=== PATIENT | male | born 1935 | race Caucasian/White ===

== ENCOUNTER 2016-11-09 10:45 | Emergency (ER) | payer MEDICARE, OTHER ==
--- NOTE | 2016-11-09 11:06 | ER Document Report ---
ED GI/ - General Time seen by provider: 11:00 Mode of Arrival: Ambulatory Information source: Patient TRAVEL OUTSIDE OF THE [place] IN LAST 30 DAYS: No - HPI Patient complains to provider of: Abdominal pain, Vomiting. No: Diarrhea Onset: Other - see HPI note Similar symptoms previously: No Recently seen / treated by doctor: No <CHAZ CONNOR - Last Filed: 11/09/16 12:21> <CHAZ SIN - Last Filed: 11/12/16 02:58> - General Chief Complaint: Abdominal Pain Stated Complaint: TORSO PAIN Notes: Patient is a 80-year-old male presented emergency department for abdominal pain , vomiting and nausea. Patient has history of pancreatitis, but has not had an episode for about 5 years. Patient has had this abdominal pain, nausea for the past 2 days and vomited 1 yesterday. Patient states that he has had good bowel movements with no diarrhea. Patient states his pain starts in the middle of his epigastric region andinto his back. Patient describes his pain as sharp and it is exacerbated with certain movements. Patient denies any chest pain, chest pressure, or shortness of breath. Patient states she has a history of type II diabetes mellitus, CHF, hypertension, hyperlipidemia, cholecystectomy, partial colectomy, and a heart valve replacement. (CHAZ CONNOR) - Related Data Allergies/Adverse Reactions: ADRIAN Inhibitors [Adrian Inhibitors] Allergy (Severe, Verified 11/09/16 10:49) Tongue swelling losartan [Losartan] Allergy (Intermediate, Verified 11/09/16 10:49) rash Past Medical History - General Information source: Patient - Social History Smoking Status: Former Smoker Chew tobacco use (# tins/day): No Frequency of alcohol use: None Drug Abuse: None Family History: None Patient has suicidal ideation: No Patient has homicidal ideation: No - Past Medical History Cardiac Medical History: Reports: Hx Atrial Fibrillation, Hx Congestive Heart Failure, Hx Hypercholesterolemia, Hx Hypertension Endocrine Medical History: Reports: Hx Diabetes Mellitus Type 2 GI Medical History: Reports: Hx Gastroesophageal Reflux Disease Musculoskeltal Medical History: Reports Hx Arthritis Past Surgical History: Reports: Hx Abdominal Surgery - colon, Hx Bowel Surgery - colon cancer partial colectomy, Hx Cholecystectomy, Hx Orthopedic Surgery - left shoulder, Hx Tonsillectomy - Immunizations Hx Diphtheria, Pertussis, Tetanus Vaccination: Yes - DECEMBER 2013 Hx Pneumococcal Vaccination: 07/15/09 <NARAAYNCHAZ ADAMS - Last Filed: 11/09/16 12:21> Review of Systems - Review of Systems Constitutional: No symptoms reported EENT: No symptoms reported Cardiovascular: No symptoms reported Respiratory: No symptoms reported Gastrointestinal: See HPI, Abdominal pain, Nausea, Vomiting. denies: Diarrhea Genitourinary: No symptoms reported Male Genitourinary: No symptoms reported Musculoskeletal: No symptoms reported Skin: No symptoms reported Hematologic/Lymphatic: No symptoms reported Neurological/Psychological: No symptoms reported -: Yes All other systems reviewed and negative <CHAZ CONNOR - Last Filed: 11/09/16 12:21> Physical Exam - Vital signs Interpretation: Normal - General General appearance: Appears well, Alert In distress: Mild - HEENT Head: Normocephalic, Atraumatic Eyes: Normal Pupils: PERRL Mucous membranes: Moist - Respiratory Respiratory status: No respiratory distress Chest status: Nontender Breath sounds: Normal Chest palpation: Normal - Cardiovascular Rhythm: Regular Heart sounds: Normal auscultation Murmur: No - Abdominal Inspection: Normal Distension: No distension Bowel sounds: Normal Tenderness: Tender - Mild epigastric tenderness, no guarding, rebound, or rigidity; no pulsatile dullness or hernias. Organomegaly: No organomegaly - Extremities General upper extremity: Normal inspection, Normal ROM, Normal strength General lower extremity: Normal inspection, Normal ROM, Normal strength, Other - good pulses and perfusion. No: Edema - No edema or swelling to the lower extremities - Neurological Neuro grossly intact: Yes Cognition: Normal Orientation: AAOx4 Val[place] Coma Scale Eye Opening: Spontaneous Valente Coma Scale Verbal: Oriented Valente Coma Scale Motor: Obeys Commands [place] Coma Scale Total: 15 Speech: Normal - Psychological Associated symptoms: Normal affect, Normal mood - Skin Skin Temperature: Warm Skin Moisture: Dry <NARAYANANGIECHAZ - Last Filed: 11/09/16 12:21> Course - Laboratory Result Diagrams: 11/09/16 11:22 11/09/16 11:22 <CHAZ CONNOR - Last Filed: 11/09/16 12:21> - Laboratory Result Diagrams: 11/09/16 11:22 11/09/16 11:22 <CHAZ SIN - Last Filed: 11/12/16 02:58> - Re-evaluation Re-evalutation: 11/09/16 11:07 Patient presents a month spell with a 2 day history of mild epigastric abdominal pain and nausea says it feels like when he had pancreatitis. He has a pancreatitis and years has gallbladder removed a couple years ago says he occasionally drinks but very rarely. Hasn't had any problem with this in years. Denies any fevers chills cough chest pain shortness breath vomiting diarrhea or blood in the stool. He has a history of high blood pressure non-insulin- dependent diabetes hyperlipidemia congestive heart failure. He also has history of A. fib had to stop blood thinners due to bleeding 2 months ago. Has a history of colon cancer with partial colectomy in 1999. No recurrence of the cancer as well as a history of GERD. On examination he is well-appearing nontoxic in no acute distress he is afebrile not hypotensive or tachycardic. Mild epigastric tenderness without guarding rebound rigidity pulsatile dullness or hernias good peripheral pulses and no lower show me edema calf tenderness or swelling. Patient does not want IV pain or nausea medication at this point he wants to see with the labs look like and reassess. 11/09/16 13:49 Patient reassessed on examination negative acute white count elevation stable low platelet count mild renal insufficiency unchanged serial examination patient is sleeping on reassessment no acute guarding rebound rigidity he agreed to let me give him a [place] while he was here. He could have early pancreatitis it just isn't showing up yet on laboratory evaluation for this reason I discussed with him and his friend that A here at the bedside since it' s a week any will be able to follow up with his primary care physician to recheck in the emergency department in 12-24 hours for recheck and reevaluation he is to return immediately for increasing worsening or new symptoms. (CHAZ SIN) - Vital Signs Vital signs: Temp Pulse Resp BP Pulse Ox 98.2 F 88 16 120/76 92 11/09/16 13:54 11/09/16 13:54 11/09/16 13:54 11/09/16 13:54 11/09/16 13:54 - Laboratory Laboratory results interpreted by me: 11/09/16 11/09/16 11/09/16 11:22 11:22 11:22 WBC 10.9 H RBC 3.90 L MCV 102 H MCH 35.4 H RDW 15.7 H Plt Count 148 L Seg Neutrophils % 83.8 H Lymphocytes % 8.4 L Absolute Neutrophils 9.1 H Chloride 86 L Carbon Dioxide 41 H* BUN 63 H Creatinine 1.52 H Est GFR ( Amer) 54 L Est GFR (Non-Af Amer) 44 L Glucose 156 H Total Bilirubin 1.6 H NT-Pro-B Natriuret Pep 3440 H Total Protein 8.4 H - EKG Interpretation by Me Additional EKG results interpreted by me: 11/09/16 12:07 EKG interpreted by myself to reveal atrial flutter at [address] segment elevation or depression (CHAZ SIN) Discharge <CHAZ CONNOR - Last Filed: 11/09/16 12:21> <CHAZ SIN - Last Filed: 11/12/16 02:58> - Discharge Clinical Impression: abdominal pain Condition: Stable Disposition: HOME, SELF-CARE Additional Instructions: Abdominal Pain There are many causes of abdominal pain. Pain can mean a serious problem requiring surgery (such as appendicitis). It can also be an innocent problem that goes away on its own (such as a viral infection). Often, time must pass to determine the cause of pain. The physician does not feel that hospitalization is necessary, at present. Things may change within the next 24 hours. Call the doctor or come back for re- examination if any problems occur, such as: (1) Pain that becomes more severe, steady, or becomes concentrated in one specific area. Also, pain that is more severe with movement or coughing. (2) Vomiting that persists or becomes more frequent. (3) Blood in the vomitus, urine, or bowel movements. Blood in the stool may have a tarry or black appearance. (4) Shaking chills or fever greater than 100 degrees F. (5) The abdomen becomes more distended or swollen. (6) Bowel movements cease. (7) Failure to improve as expected. Follow-up in the emergency department for recheck and reevaluation in 12-24 hours since her family doctor will not be open return for increasing worsening or new symptoms Prescriptions: Hydrocodone/Acetaminophen [[place] 5-325 mg Tablet] 1 tab PO BID #6 tablet Referrals: ROSEMARY KNOWLES MD [Primary Care Provider] - Follow up as needed Scribe Attestation: 11/09/16 13:49 I personally performed the services described in the documentation reviewed the documentation recorded by my scribe in my presence and it accurately and completely records my words and actions (CHAZ SIN) Scribe Documentation - Scribe Written by Scribe:: Chaz Connor 11/09/16 12:25 acting as scribe for :: Cy <CHAZ CONNOR - Last Filed: 11/09/16 12:21>
[2016-11-09 11:43] LABS: ABSOLUTE EOSINOPHILS # (AUTO) 0.1 10^3/uL (0.0-0.6); ABSOLUTE LYMPHOCYTES (AUTO) 0.9 10^3/uL (0.5-4.7); ABSOLUTE MONOCYTES (AUTO) 0.7 10^3/uL (0.1-1.4); ABSOLUTE NEUT (AUTO) 9.1 10^3/uL (1.7-8.2); BASOPHILS % (AUTO) 0.4 % (0-2); EOSINOPHILS % (AUTO) 0.8 % (0-6); HEMATOCRIT 39.7 % (37.9-51.0); HEMOGLOBIN 13.8 g/dL (13.5-17.0); HGB HCT DIFFERENCE 1.7; LYMPHOCYTES % (AUTO) 8.4 % (13-45); MEAN CORPUSCULAR HEMOGLOBIN 35.4 pg (27.0-33.4); MEAN CORPUSCULAR HGB CONC 34.7 g/dL (32.0-36.0); MEAN CORPUSCULAR VOLUME 102 fl (80-97); MONOCYTES % (AUTO) 6.6 % (3-13); RED CELL DISTRIBUTION WIDTH 15.7 % (11.5-14.0); SEGMENTED NEUTROPHILS % (AUTO) 83.8 % (42-78); WHITE BLOOD COUNT 10.9 10^3/uL (4.0-10.5)
[2016-11-09 12:03] LABS: ALANINE AMINOTRANSFERASE 29 U/L (21-72); ALBUMIN 4.5 g/dL (3.5-5.0); ALKALINE PHOSPHATASE 80 U/L (38-126); ASPARTATE AMINO TRANSFERASE 46 U/L (17-59); BILIRUBIN,DIRECT 0.4 mg/dL (0.0-0.4); BILIRUBIN,TOTAL 1.6 mg/dL (0.2-1.3); BLOOD UREA NITROGEN 63 mg/dL (7-20); CALCIUM 9.6 mg/dL (8.4-10.2); CHLORIDE 86 mmol/L (98-107); CREATININE RESULT 1.52 mg/dL (0.52-1.25); GLUCOSE 156 mg/dL (75-110); LIPASE 189.2 U/L (23-300); POTASSIUM 3.9 mmol/L (3.6-5.0); TOTAL PROTEIN 8.4 g/dL (6.3-8.2)
[2016-11-09 12:15] LABS: ANION GAP 14 (5-19)
[2016-11-09 12:16] LABS: CARBON DIOXIDE 41 mmol/L (22-30)
[2016-11-09 12:21] LABS: TROPONIN I 0.098 ng/mL
[2016-11-09 12:48] LABS: APPEARANCE,URINE CLEAR; BILIRUBIN,URINE NEGATIVE (NEGATIVE); GLUCOSE, URINE NEGATIVE (NEGATIVE); KETONES,URINE NEGATIVE (NEGATIVE); LEUKOCYTE ESTERASE,URINE NEGATIVE (NEGATIVE); NITRITE,URINE NEGATIVE (NEGATIVE); PROTEIN,URINE NEGATIVE (NEGATIVE); URINE SPECIFIC GRAVITY 1.006; UROBILINOGEN,URINE NEGATIVE mg/dL (<2.0)
[2016-11-09] MEDS ORDERED: HYDROCODONE/ACETAMINOPHEN 5-325 MG TABLET PO ONE (13:47)
[2016-11-09 14:02] VITALS: BP 120/76
--- NOTE | 2016-11-09 19:38 | EKG REPORT ---
SEVERITY:- ABNORMAL ECG - ATRIAL FLUTTER, A-RATE 217 RBBB AND LPFB : Confirmed by: Felicia Guy 09-Nov-2016 19:37:52
== END 2016-11-09 13:50 | disposition home or self-care (01) ==
LOC: ER 10:45
DX: R10.13 Epigastric pain (principal); R11.2 Nausea with vomiting, unspecified; N28.9 Disorder of kidney and ureter, unspecified; I48.92 Unspecified atrial flutter; D69.6 Thrombocytopenia, unspecified; E11.9 Type 2 diabetes mellitus without complications; I10 Essential (primary) hypertension; Z90.49 Acquired absence of other specified parts of digestive tract; Z88.8 Allergy status to other drugs, medicaments and biological substances; Z95.2 Presence of prosthetic heart valve; Z87.891 Personal history of nicotine dependence; Z87.19 Personal history of other diseases of the digestive system
CPT/HCPCS: 93005; 99284; 36415; 83690; 85025; 80053; 81001; 84484; 83880; 71020; 93010; A9270

== ENCOUNTER 2017-04-08 12:51 | Observation (INO) | payer MEDICARE, OTHER ==
[2017-04-08] MEDS ORDERED: ASPIRIN 81 MG TABLET, CHEWABLE PO ONE (13:19)
--- NOTE | 2017-04-08 13:28 | ER Document Report ---
ED General - General Mode of Arrival: Ambulatory Information source: Patient TRAVEL OUTSIDE OF THE [place] IN LAST 30 DAYS: No - HPI Onset: Other - see above <FAUSTO MORGAN - Last Filed: 04/08/17 14:09> <LINO MCCORMICK - Last Filed: 04/08/17 15:55> - General Chief Complaint: Chest Pain Stated Complaint: CHEST PAIN Time Seen by Provider: 04/08/17 13:20 Notes: Patient is an 81 year old male that presents to the emergency department today with complaints of epigastric abdominal pain which radiates to his back. Patient states he has had pancreatitis twice in the past and his pain today feels exactly the same as his previous pancreatitis flares. Patient states he has not consumed EtOH in several years however he does have high cholesterol, diabetes, and a poor diet. Patient states he is short of breath but this is baseline for him. Patient denies any nausea, vomiting, cough or fevers. (FAUSTO MORGAN) - Related Data Allergies/Adverse Reactions: ADRIAN Inhibitors [Adrian Inhibitors] Allergy (Severe, Verified 04/08/17 12:54) Tongue swelling losartan [Losartan] Allergy (Intermediate, Verified 04/08/17 12:54) rash Home Medications: Current Home Medications Albuterol Sulfate [Albuterol Sulfate 2.5mg/3 mL] 1 vial IH [id number] PRN 04/08/17 [ History] Fluticasone Propionate [Flovent Hfa 110 Mcg Inhalation Aerosol 12 gm] 2 puff IN Q12 04/08/17 [History] Past Medical History - General Information source: Patient - Social History Smoking Status: Former Smoker Cigarette use (# per day): No Chew tobacco use (# tins/day): No Frequency of alcohol use: None Drug Abuse: None Lives with: Family Family History: None - Past Medical History Cardiac Medical History: Reports: Hx Atrial Fibrillation, Hx Congestive Heart Failure, Hx Hypercholesterolemia, Hx Hypertension Endocrine Medical History: Reports: Hx Diabetes Mellitus Type 2 GI Medical History: Reports: Hx Gastroesophageal Reflux Disease Musculoskeltal Medical History: Reports Hx Arthritis Past Surgical History: Reports: Hx Abdominal Surgery - colon, Hx Bowel Surgery - colon cancer partial colectomy, Hx Cholecystectomy, Hx Orthopedic Surgery - left shoulder, Hx Tonsillectomy - Immunizations Hx Diphtheria, Pertussis, Tetanus Vaccination: Yes - DECEMBER 2013 Hx Pneumococcal Vaccination: 07/15/09 <CATHYANDRESFAUSTO - Last Filed: 04/08/17 14:09> Review of Systems - Review of Systems Constitutional: denies: Fever EENT: No symptoms reported Cardiovascular: No symptoms reported Respiratory: See HPI, Short of breath - chronic. denies: Cough Gastrointestinal: See HPI, Abdominal pain - upper radiating to back. denies: Nausea, Vomiting Genitourinary: No symptoms reported Male Genitourinary: No symptoms reported Musculoskeletal: No symptoms reported Skin: No symptoms reported Hematologic/Lymphatic: No symptoms reported Neurological/Psychological: No symptoms reported -: Yes All other systems reviewed and negative <FAUSTO MORGAN - Last Filed: 04/08/17 14:09> Physical Exam <FAUSTO MORGAN - Last Filed: 04/08/17 14:09> <LINO MCCORMICK - Last Filed: 04/08/17 15:55> - Vital signs Vitals: Temp Pulse Resp BP Pulse Ox 98.5 F 108 H 32 H 123/74 90 L 04/08/17 12:54 04/08/17 12:54 04/08/17 12:54 04/08/17 12:54 04/08/17 12:54 - Notes Notes: PHYSICAL EXAM GENERAL: Alert, interacts well. No acute distress. HEAD: Normocephalic, atraumatic. EYES: Pupils equal, round, and reactive to light. Extraocular movements intact. ENT: Oral mucosa moist, tongue midline. NECK: Full range of motion. Supple. Trachea midline. LUNGS: Clear to auscultation bilaterally, no wheezes, rales, or rhonchi. No respiratory distress. HEART: Regular rate and rhythm. No murmurs, gallops, or rubs. ABDOMEN: Obese, soft, epigastric abdominal tenderness with palpation, lower abdominal tenderness with palpation. Non-distended. Bowel sounds present in all 4 quadrants. EXTREMITIES: Moves all 4 extremities spontaneously. No cyanosis. NEUROLOGICAL: Alert and oriented x3. Normal speech. PSYCH: Normal affect, normal mood. SKIN: Warm, dry, normal turgor. No rashes or lesions noted. (FAUSTO MORGAN) Course <FAUSTO MORGAN - Last Filed: 04/08/17 14:09> - Laboratory Result Diagrams: 04/08/17 14:05 04/08/17 14:05 <LINO MCCORMICK - Last Filed: 04/08/17 15:55> - Re-evaluation Re-evalutation: 04/08/17 15:31 CBC shows leukocytosis and low platelets at 130, CMP shows slightly elevated BUN at 47, elevated total and direct bilirubin 2.3 and 0.8 respectively, cardiac enzymes indeterminate 0.091, proBNP elevated at 2120, lipase normal at 124.8, suspect this is cardiac in etiology rather than pancreatitis as the lipase is normal and his pain was relieved by nitroglycerin. EKG has some flipped T waves but no acute ischemia. Pain is relieved with nitroglycerin. Discussed case with Dr. Curry from the hospitalist service who agrees to place patient on her service in observation status on the telemetry care unit. Patient is aware that if his cardiac enzymes become positive he may need to be transferred. Patient is agreeable to this plan. Given Lasix for his congestive heart failure. Chest x-ray does not show any major fluid overload. ( LINO MCCORMICK) - Vital Signs Vital signs: Temp Pulse Resp BP Pulse Ox 98.5 F 108 H 18 103/71 97 04/08/17 12:54 04/08/17 12:54 04/08/17 15:01 04/08/17 15:01 04/08/17 15:01 - Laboratory Laboratory results interpreted by me: 04/08/17 04/08/17 04/08/17 14:05 14:05 14:05 WBC 14.6 H RBC 3.76 L MCV 102 H MCH 35.9 H RDW 15.5 H Plt Count 130 L Seg Neutrophils % 83.4 H Lymphocytes % 7.1 L Absolute Neutrophils 12.2 H Chloride 90 L Carbon Dioxide 37 H BUN 47 H Glucose 142 H Total Bilirubin 2.3 H Direct Bilirubin 0.8 H NT-Pro-B Natriuret Pep 2120 H - EKG Interpretation by Me Additional EKG results interpreted by me: 04/08/17 15:31 EKG shows sinus rhythm at a rate of 74, left axis deviation, right bundle branch block, no ST segment elevations or depressions, there are some T-wave inversions noted in V2 through V4 which are unchanged from prior EKG on 11/09/2016 per my interpretation. (LINO MCCORMICK) Discharge <FAUSTO MORGAN - Last Filed: 04/08/17 14:09> - Discharge Admitting Provider: Hospitalist - [facility] Unit Admitted: Telemetry <LINO MCCORMICK - Last Filed: 04/08/17 15:55> - Discharge Clinical Impression: Chest pain, rule out acute myocardial infarction Condition: Fair Disposition: ADMITTED OBSERVATION Scribe Attestation: 04/08/17 15:55 I personally performed the services described in the documentation, reviewed and edited the documentation which was dictated to the scribe in my presence, and it accurately records my words and actions. (LINO MCCORMICK) Scribe Documentation - Scribe Written by Oscaribe:: Alfreda Herr, 04/08/2017 [id number] acting as scribe for :: Zheng <FAUSTO MORGAN - Last Filed: 04/08/17 14:09>
[2017-04-08] MEDS ORDERED: NITROGLYCERIN 0.4 MG/TAB 25 TAB/BOTTLE SL PRN (13:29)
[2017-04-08] MEDS ORDERED: ONDANSETRON HCL INJ/PF 4 MG/2 ML SDV IV ONE (13:29)
--- NOTE | 2017-04-08 13:49 | RADIOLOGY REPORT (SQ) ---
EXAM DESCRIPTION: CHEST SINGLE VIEW COMPLETED DATE/TIME: 04/08/2017 1:35 pm REASON FOR STUDY: cp. COMPARISON: 11/09/2016 EXAM PARAMETERS: NUMBER OF VIEWS: One view. TECHNIQUE: Single frontal radiographic view of the chest acquired. RADIATION DOSE: NA LIMITATIONS: Shallow inspiration. Patient body habitus. FINDINGS: LUNGS AND PLEURA: Continued streaky atelectatic markings at the lung bases, stable. Upper lung [place] generally clear. MEDIASTINUM AND HILAR STRUCTURES: Stable appearance. HEART AND VASCULAR STRUCTURES: Cardiomegaly stable, accentuated by shallow inspiration. No overt CHF . BONES: No acute findings. HARDWARE: Transvenous pacer. OTHER: No other significant finding. IMPRESSION: Stable appearance. Streaky atelectatic markings again seen lung bases. TECHNICAL DOCUMENTATION: JOB ID: [id number]
[2017-04-08 14:16] LABS: ABSOLUTE BASOPHILS # (AUTO) 0.1 10^3/uL (0.0-0.2); ABSOLUTE MONOCYTES (AUTO) 1.3 10^3/uL (0.1-1.4); ABSOLUTE NEUT (AUTO) 12.2 10^3/uL (1.7-8.2); BASOPHILS % (AUTO) 0.4 % (0-2); EOSINOPHILS % (AUTO) 0.3 % (0-6); HEMATOCRIT 38.4 % (37.9-51.0); HEMOGLOBIN 13.5 g/dL (13.5-17.0); HGB HCT DIFFERENCE 2.1; LYMPHOCYTES % (AUTO) 7.1 % (13-45); MEAN CORPUSCULAR HEMOGLOBIN 35.9 pg (27.0-33.4); MEAN CORPUSCULAR HGB CONC 35.1 g/dL (32.0-36.0); MEAN CORPUSCULAR VOLUME 102 fl (80-97); MONOCYTES % (AUTO) 8.8 % (3-13); RED BLOOD COUNT 3.76 10^6/uL (4.35-5.55); RED CELL DISTRIBUTION WIDTH 15.5 % (11.5-14.0); SEGMENTED NEUTROPHILS % (AUTO) 83.4 % (42-78); WHITE BLOOD COUNT 14.6 10^3/uL (4.0-10.5)
[2017-04-08 14:33] LABS: ALANINE AMINOTRANSFERASE 32 U/L (21-72); ALBUMIN 4.4 g/dL (3.5-5.0); ALKALINE PHOSPHATASE 69 U/L (38-126); ASPARTATE AMINO TRANSFERASE 44 U/L (17-59); BILIRUBIN,DIRECT 0.8 mg/dL (0.0-0.4); BILIRUBIN,TOTAL 2.3 mg/dL (0.2-1.3); BLOOD UREA NITROGEN 47 mg/dL (7-20); CALCIUM 9.1 mg/dL (8.4-10.2); CHLORIDE 90 mmol/L (98-107); CREATINE KINASE 77 U/L (55-170); CREATININE RESULT 1.17 mg/dL (0.52-1.25); GLUCOSE 142 mg/dL (75-110); LIPASE 124.8 U/L (23-300); POTASSIUM 3.9 mmol/L (3.6-5.0); SODIUM 138.1 mmol/L (137-145); TOTAL PROTEIN 7.6 g/dL (6.3-8.2)
[2017-04-08 14:39] LABS: ANION GAP 11 (5-19); CARBON DIOXIDE 37 mmol/L (22-30)
[2017-04-08 14:44] LABS: CREATINE KINASE MB 2.69 ng/mL (<4.55)
[2017-04-08 14:48] LABS: TROPONIN I 0.091 ng/mL
[2017-04-08] MEDS ORDERED: FUROSEMIDE INJ/PF 40 MG/4 ML SDV IV ONE (15:25)
[2017-04-08] MEDS ORDERED: ALBUTEROL SULFATE 0.083% NEB 2.5 MG/3 ML AMPUL NEB PRN (16:52)
--- NOTE | 2017-04-08 16:52 | PDOC H&P ---
History of Present Illness Admission Date/PCP: 04/08/17 15:39 ROSEMARY ROMAN MD Patient complains of: Back pain History of Present Illness: KYLAH ORTIZ is a 81 year old white male with a past medical history significant for CHF last known EF of 10-20%, hypertension, pancreatitis secondary to gallstones 2, diabetes and BPH who presents to the service with complaints of back pain. The patient states that yesterday he was out mowing the lawn he developed back pain in the center of his back between his shoulder blades. The patient did not try any home remedies. He states that he has had pancreatitis twice in the past and that this felt exactly the same so he thought he was having another episode of pancreatitis. The pain seemed to constantly be there but got worse and this morning it was still present. Therefore, the patient decided to come into the hospital. Down in the ED he was given a nitroglycerin and his pain completely dissipated EKG showed a right bundle branch block and lipase was normal. The patient does admit to some shortness of breath during this episode. He also states that with movement his pain is much worse. Patient's first set of troponins was indeterminate. He is currently on oxygen at the bedside. Past Medical History Cardiac Medical History: Reports: Atrial Fibrillation, Congestive Heart Failure , Hyperlipidema, Hypertension Endocrine Medical History: Reports: Diabetes Mellitus Type 2, Other - History of 2 bouts of gallstone pancreatitis in the past. GI Medical History: Reports: Gastroesophageal Reflux Disease Musculoskeltal Medical History: Reports: Arthritis Hematology: Reports: Anemia - TAKES FEROUS SULFATE Denies: Sickle Cell Disease Past Surgical History Past Surgical History: Reports: Cholecystectomy, Orthopedic Surgery - left shoulder, Pacemaker - Patient has a pacemaker defibrillator, Tonsillectomy Social History Information Source: Patient, Relative Lives with: Family Smoking Status: Former Smoker Frequency of Alcohol Use: Rare Hx Recreational Drug Use: No Drugs: None Hx Prescription Drug Abuse: No Past Social History Note: Patient has a history of smoking. He smoked for. A 35 years. He quit over 30 years ago. He drinks beer every few months. Denies any illegal drug use. Years ago. - Advance Directive Resuscitation Status: Do Not Resuscitate Family History Family History: None Medication/Allergy Home Medications: Aspirin [Aspirin 81 mg Chewable Tablet] 81 mg PO POSEY@1000 09/24/15 Cyanocobalamin (Vitamin B-12) [Vitamin B-12] 1,000 mcg IM [id number] 09/24/15 Cyclobenzaprine HCl [Flexeril 10 mg Tablet] 10 mg PO QHS 09/24/15 Esomeprazole Mag Trihydrate [Nexium] 40 mg PO DAILY 09/24/15 Ezetimibe [Zetia 10 mg Tablet] 10 mg PO QHS 09/24/15 Ferrous Sulfate [Ferrousul] 325 mg PO Q8 09/24/15 Magnesium Oxide [Mag-Ox 400 mg Tablet] 400 mg PO Q12 09/24/15 Metformin HCl [Glucophage] 1,000 mg PO Q12 09/24/15 Bumetanide [Bumex 2 mg Tablet] 1 tab PO Q12 11/13/15 Metolazone 2.5 mg PO Q2D 11/13/15 Potassium Chloride 20 meq PO DAILY 11/13/15 Albuterol Sulfate [Albuterol Sulfate 2.5mg/3 mL] 1 vial IH RTQ4HP PRN 04/08/17 Fluticasone Propionate [Flovent Hfa 110 Mcg Inhalation Aerosol 12 gm] 2 puff IN Q12 04/08/17 Allergies/Adverse Reactions: ALIA Inhibitors [Alia Inhibitors] Allergy (Severe, Verified 04/08/17 12:54) Tongue swelling losartan [Losartan] Allergy (Intermediate, Verified 04/08/17 12:54) rash Review of Systems Review of Systems: Pertinent positive history as per HPI. In addition to this, the patient admits to blood-streaked stools, possible hemorrhoids, difficulty with starting his urinary stream. He admits to a history of BPH. Arthritic pains in the hands and chronic arthritic back pain. He also admits to occasional dizziness when he first sits up in the morning and feels off balance with walking. 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 He denies fevers vomiting, nausea, chills, diarrhea constipation, blood in the urine, coughing up blood, throwing up blood , abdominal pain, weight loss or unusual weight gain in the setting of CHF, vision changes. Physical Exam Vital Signs: Temp Pulse Resp BP Pulse Ox 98.5 F 108 H 18 103/71 97 04/08/17 12:54 04/08/17 12:54 04/08/17 15:01 04/08/17 15:01 04/08/17 15:01 GENERAL: This is a well-developed well-nourished, obese, white male resting in bed currently in no acute distress. HEENT: Normocephalic, atraumatic. Sclera are anicteric. No lymphadenopathy. Trachea is midline. No thyromegaly. Dry mucous membranes. HEART: Regular rate and rhythm. Pacer spikes on telemetry with a rate at 68. No obvious murmurs rubs or gallops. LUNGS: Diminished breath sounds at the bases otherwise clear to auscultation bilaterally with equal rise and fall the chest ABDOMEN: [Soft, nontender, obese, nondistended with normoactive bowel sounds] EXTREMETIES: [No clubbing, cyanosis or edema. 2+ peripheral pulses bilaterally. Strength is 5 out of 5 in both the upper and lower extremities bilaterally] NEURO: [Awake, alert and oriented 3. Cranial nerves II through XII are specifically intact. Speech is fluent] Results Impressions: Chest X-Ray 04/08/17 13:19 IMPRESSION: Stable appearance. Streaky atelectatic markings again seen lung bases. Assessment & Plan - Diagnosis (1) Chest pain Plan: Patient's pain is actually more of a back pain more so than in his chest. I suspect this will likely be a musculoskeletal issue. Patient's first troponin is indeterminate. We will recheck another 2 sets. The patient's troponin does truly increase he would likely need to be transferred out. He usually follows with Dr. Santana and Dr. Sutton. Nitroglycerin, as needed morphine, oxygen and aspirin will be provided. (2) Chronic CHF (congestive heart failure) Qualifiers: Congestive heart failure type: combined Qualified Code(s): I50.42 - Chronic combined systolic (congestive) and diastolic (congestive) heart failure Plan: This is a chronic systolic and diastolic heart failure. The patient looks compensated. Continue his home medications. His BMP is 2000. Looking back the patient is doing quite well at this level. He is usually in the 10,000. Last known EF is 10-20% as per patient report. (3) Diabetes Qualifiers: Diabetes mellitus type: type 2 Plan: Continue home medications. Hemoglobin A1c checked, before meals at bedtime fingersticks with sliding scale insulin. (4) Dyslipidemia Plan: Continue home medication (5) Hypertension Plan: At the bedside blood pressure is currently 89/71 which does not make sense. Repeat reveals a blood pressure of 108/61. Continue home medications. (6) Obesity Qualifiers: Obesity classification: adult class 1 (BMI 30 ? 34.9) (7) Leukocytosis Plan: Patient's white blood cell count is elevated at 14. He has history of BPH. I suspect he might have an underlying urinary tract infection. the urinalysis has not been ordered we will add this on. If this is positive for leukocyte esterase or bacteria we will start Rocephin empirically and obtain a culture. - Time Time Spent: 50 to 70 Minutes - Inpatient Certification Medical Necessity: Need Close Monitoring Due to Risk of Patient Decompensation
[2017-04-08] MEDS ORDERED: DEXTROSE 40% GEL 15 GM TUBE PO PRN ×2 (17:16)
[2017-04-08] MEDS ORDERED: GLUCAGON,HUMAN RECOMB 1 MG INJ IM PRN (17:16)
[2017-04-08] MEDS ORDERED: DEXTROSE 50%-WATER 25 GM/50 ML DISP.SYRIN IV PRN ×2 (17:16)
[2017-04-08] MEDS ORDERED: ENOXAPARIN SODIUM INJ 40 MG/0.4 ML DISP.SYRIN SUBCUT ONE (18:00)
[2017-04-08] MEDS: CEFTRIAXONE 1 GM/D5W RTU 1 GM/50 ML RTUPB IV SCH (19:50)
[2017-04-08 20:13] LABS: APPEARANCE,URINE CLEAR; BILIRUBIN,URINE NEGATIVE (NEGATIVE); GLUCOSE, URINE NEGATIVE (NEGATIVE); KETONES,URINE NEGATIVE (NEGATIVE); LEUKOCYTE ESTERASE,URINE NEGATIVE (NEGATIVE); NITRITE,URINE NEGATIVE (NEGATIVE); PROTEIN,URINE NEGATIVE (NEGATIVE); URINE SPECIFIC GRAVITY 1.008; UROBILINOGEN,URINE NEGATIVE mg/dL (<2.0)
--- NOTE | 2017-04-08 21:02 | EKG REPORT ---
SEVERITY:- ABNORMAL ECG - SINUS RHYTHM RIGHT BUNDLE BRANCH BLOCK : Confirmed by: Dayan Zepeda MD 08-Apr-2017 21:02:08
[2017-04-08] MEDS: EZETIMIBE 10 MG TABLET PO SCH (21:59)
[2017-04-08] MEDS: FERROUS SULFATE 325 MG TABLET PO SCH (21:59)
[2017-04-08] MEDS: FLUTICASONE PROPIONATE HFA 110 MCG/PUFF 12 GM MDI IH SCH (21:59)
[2017-04-08] MEDS: MAGNESIUM OXIDE 400 MG TABLET PO SCH (21:59)
[2017-04-08] MEDS ORDERED: METFORMIN HCL 500 MG TABLET PO SCH (22:00)
[2017-04-08] MEDS ORDERED: BUMETANIDE 1 MG TABLET PO SCH (22:00)
[2017-04-08] MEDS ORDERED: CYCLOBENZAPRINE HCL 10 MG TABLET PO SCH (22:00)
[2017-04-08] MEDS ORDERED: (PENDING PHARMACY ID) (Bumetanide [Bumex 2 Mg Tablet] 1 TAB) PO SCH (22:00)
[2017-04-09] MEDS: FERROUS SULFATE 325 MG TABLET PO SCH ×3 (05:28→21:30)
[2017-04-09 05:49] LABS: HEMATOCRIT 36.1 % (37.9-51.0); HEMOGLOBIN 12.8 g/dL (13.5-17.0); HGB HCT DIFFERENCE 2.3; MEAN CORPUSCULAR HEMOGLOBIN 36.2 pg (27.0-33.4); MEAN CORPUSCULAR HGB CONC 35.4 g/dL (32.0-36.0); MEAN CORPUSCULAR VOLUME 102 fl (80-97); RED BLOOD COUNT 3.53 10^6/uL (4.35-5.55); RED CELL DISTRIBUTION WIDTH 15.4 % (11.5-14.0)
[2017-04-09] MEDS: ACETAMINOPHEN 325 MG TABLET PO PRN ×2 (05:56→23:19)
[2017-04-09 06:05] LABS: ANION GAP 12 (5-19); BLOOD UREA NITROGEN 53 mg/dL (7-20); CARBON DIOXIDE 38 mmol/L (22-30); CHLORIDE 90 mmol/L (98-107); CREATININE RESULT 1.39 mg/dL (0.52-1.25); GLUCOSE 136 mg/dL (75-110); MAGNESIUM 1.6 mg/dL (1.6-2.3); POTASSIUM 3.9 mmol/L (3.6-5.0)
[2017-04-09] MEDS: LANSOPRAZOLE 30 MG TAB.RAP.DR PO SCH (09:37)
[2017-04-09] MEDS: MAGNESIUM OXIDE 400 MG TABLET PO SCH ×2 (09:37→21:30)
[2017-04-09] MEDS: FLUTICASONE PROPIONATE HFA 110 MCG/PUFF 12 GM MDI IH SCH (09:38)
[2017-04-09] MEDS ORDERED: METOLAZONE 5 MG TABLET PO SCH (10:00)
[2017-04-09] MEDS ORDERED: ENOXAPARIN SODIUM INJ 40 MG/0.4 ML DISP.SYRIN SUBCUT SCH (10:00)
[2017-04-09] MEDS ORDERED: POTASSIUM CHLORIDE 10 MEQ TABLET.SA PO SCH (10:00)
[2017-04-09] MEDS ORDERED: (PENDING PHARMACY ID) (Esomeprazole Mag Trihydrate [Nexium] 40 MG) PO SCH (10:00)
--- NOTE | 2017-04-09 13:31 | RADIOLOGY REPORT (SQ) ---
EXAM DESCRIPTION: CERV SP 4 OR 5 VIEWS COMPLETED DATE/TIME: 04/09/2017 1:24 pm REASON FOR STUDY: neck pain R07.9 CHEST PAIN, UNSPECIFIED COMPARISON: None. NUMBER OF VIEWS: Five views including obliques. TECHNIQUE: AP, lateral, obliques and odontoid radiographic images acquired of the cervical spine. LIMITATIONS: None. FINDINGS: MINERALIZATION: Normal. SEGMENTATION: Normal. ALIGNMENT: Normal. VERTEBRAE: Maintained height. No fracture or worrisome bone lesion. DISCS: Multilevel disc space narrowing with osteophytes. POSTERIOR ELEMENTS: Pedicles and facets are intact. No posterior arch defects. Facet arthropathy is present. FORAMINA: Narrowed at the levels of maximal disc and facet disease. HARDWARE: None in the spine. PARASPINAL SOFT TISSUES: Normal. OTHER: No other significant finding. IMPRESSION: SPONDYLOSIS WITHOUT BONE LESION OR FRACTURE. TECHNICAL DOCUMENTATION: JOB ID: [id number] [employer]- All Rights Reserved
[2017-04-09] MEDS: GABAPENTIN 100 MG CAPSULE PO SCH ×2 (13:36→21:30)
[2017-04-09] MEDS: CYCLOBENZAPRINE HCL 10 MG TABLET PO SCH ×2 (13:37→21:30)
[2017-04-09] MEDS ORDERED: OXYMETAZOLINE HCL 0.05% NASAL SPRAY 15 ML BOTTLE NASL PRN ×2 (16:43→22:00)
--- NOTE | 2017-04-09 17:40 | PDOC PROGRESS REPORT ---
Subjective Progress Note for:: 04/09/17 Subjective:: This is a follow-up for chest pain. Patient states he is no longer having chest pain and was more so back and neck pain and shoulder pain. Most of the pain is on the right side of the neck. Patient states this had occurred upon waking up a couple nights ago. Patient only has the pain when he turns his head. The nurse also called stating that the patient has had 2 episodes of epistaxis. Patient is not on humidified oxygen. He is on Lovenox and aspirin Physical Exam Vital Signs: Temp Pulse Resp BP Pulse Ox 98.3 F 77 16 117/80 93 04/09/17 12:11 04/09/17 14:23 04/09/17 12:11 04/09/17 12:11 04/09/17 16:37 Intake & Output 04/08/17 04/09/17 04/10/17 06:59 06:59 06:59 Intake Total 695 843 Output Total 900 Balance -205 843 Weight 104.7 kg General appearance: PRESENT: no acute distress, cooperative Head exam: PRESENT: normocephalic Eye exam: PRESENT: EOMI Mouth exam: PRESENT: moist Neck exam: PRESENT: other - Tends to turn entire body when turning in either direction. Tenderness on palpation on the right side of the neck Respiratory exam: PRESENT: clear to auscultation olinda. ABSENT: unlabored, wheezes Cardiovascular exam: PRESENT: RRR, +S1, +S2 GI/Abdominal exam: PRESENT: normal bowel sounds, soft. ABSENT: tenderness Rectal exam: PRESENT: deferred Extremities exam: ABSENT: pedal edema Neurological exam: PRESENT: alert, awake, oriented to person, oriented to place , CN II-XII grossly intact Psychiatric exam: PRESENT: normal mood Skin exam: PRESENT: intact, warm Results Laboratory Results: 04/09/17 04:32 04/09/17 04:32 04/08/17 04/09/17 04/09/17 20:00 04:32 04:32 WBC 14.0 H RBC 3.53 L Hgb 12.8 L Hct 36.1 L MCV 102 H MCH 36.2 H MCHC 35.4 RDW 15.4 H Plt Count 130 L Sodium 140.0 Potassium 3.9 Chloride 90 L Carbon Dioxide 38 H Anion Gap 12 BUN 53 H Creatinine 1.39 H Est GFR ( Amer) 59 L Est GFR (Non-Af Amer) 49 L Glucose 136 H Calcium 9.0 Magnesium 1.6 Urine Color YELLOW Urine Appearance CLEAR Urine pH 7.0 Ur Specific [place] 1.008 Urine Protein NEGATIVE Urine Glucose (UA) NEGATIVE Urine Ketones NEGATIVE Urine Blood NEGATIVE Urine Nitrite NEGATIVE Ur Leukocyte Esterase NEGATIVE Urine RBC (Auto) 2 04/08/17 04/08/17 17:26 23:24 Troponin I 0.113 0.112 Impressions: Chest X-Ray 04/08/17 13:19 IMPRESSION: Stable appearance. Streaky atelectatic markings again seen lung bases. Cervical Spine X-Ray 04/09/17 00:00 IMPRESSION: SPONDYLOSIS WITHOUT BONE LESION OR FRACTURE. Assessment & Plan - Diagnosis (1) Neck pain on right side Is this a current diagnosis for this admission?: Yes Plan: It was initially thought to be possibly cardiac in nature appears to be more musculoskeletal. This is ruled out. X-ray of the cervical spine was ordered which shows spondylosis. Patient started on gabapentin. Patient baclofen changed to 3 times daily. And warm compress to be applied to the area. (2) Chronic CHF (congestive heart failure) Qualifiers: Congestive heart failure type: combined Qualified Code(s): I50.42 - Chronic combined systolic (congestive) and diastolic (congestive) heart failure Is this a current diagnosis for this admission?: Yes Plan: Patient is euvolemic at this time. Patient may benefit from Coreg however being that his borderline hypotensive we will monitor for now. Patient is not on any ACEI or ARB due to his allergy. (3) Leukocytosis Qualifiers: Leukocytosis type: leukemoid reaction Qualified Code(s): D72.823 - Leukemoid reaction Is this a current diagnosis for this admission?: Yes Plan: There was concern for possible UTI however patient UA is not consistent with UTI. Urine culture was sent. Difficult to stand at this time as patient has received antibiotic therapy. We will continue ceftriaxone for now and monitor his CBC. (4) Diabetes Qualifiers: Diabetes mellitus type: type 2 Is this a current diagnosis for this admission?: Yes Plan: Continue SSI. (5) Dyslipidemia Is this a current diagnosis for this admission?: Yes Plan: Continue Ezetimibe. (6) Hypertension Qualifiers: Hypertension type: essential hypertension Qualified Code(s): I10 - Essential (primary) hypertension Is this a current diagnosis for this admission?: Yes Plan: Patient is boarderline hypotensive but asymptomatic. Will continue to monitor and not give any blood pressure medications. (7) Obesity Qualifiers: Obesity classification: adult class 1 (BMI 30 ? 34.9) Is this a current diagnosis for this admission?: Yes Plan: [employer] patient. (8) Epistaxis Is this a current diagnosis for this admission?: Yes Plan: Stop lovenox. Humidify patient oxygen and discontinue lasix. Use SCD for DVT prophylaxis. - Time Time Spent with patient: 15-24 minutes Anticipated discharge: Home Within: within 24 hours
[2017-04-09] MEDS: CEFTRIAXONE 1 GM/D5W RTU 1 GM/50 ML RTUPB IV SCH (18:13)
[2017-04-09] MEDS: OXYMETAZOLINE HCL 0.05% NASAL SPRAY 15 ML BOTTLE NASL SCH (19:24)
[2017-04-09 20:15] LABS: ABSOLUTE BASOPHILS # (AUTO) 0.1 10^3/uL (0.0-0.2); ABSOLUTE EOSINOPHILS # (AUTO) 0.1 10^3/uL (0.0-0.6); ABSOLUTE LYMPHOCYTES (AUTO) 1.2 10^3/uL (0.5-4.7); ABSOLUTE MONOCYTES (AUTO) 1.1 10^3/uL (0.1-1.4); ABSOLUTE NEUT (AUTO) 10.9 10^3/uL (1.7-8.2); BASOPHILS % (AUTO) 0.5 % (0-2); EOSINOPHILS % (AUTO) 0.4 % (0-6); HEMATOCRIT 36.2 % (37.9-51.0); HEMOGLOBIN 12.5 g/dL (13.5-17.0); HGB HCT DIFFERENCE 1.3; LYMPHOCYTES % (AUTO) 9.3 % (13-45); MEAN CORPUSCULAR HEMOGLOBIN 35.1 pg (27.0-33.4); MEAN CORPUSCULAR HGB CONC 34.5 g/dL (32.0-36.0); MEAN CORPUSCULAR VOLUME 102 fl (80-97); MONOCYTES % (AUTO) 8.2 % (3-13); RED BLOOD COUNT 3.57 10^6/uL (4.35-5.55); RED CELL DISTRIBUTION WIDTH 15.5 % (11.5-14.0); SEGMENTED NEUTROPHILS % (AUTO) 81.6 % (42-78); WHITE BLOOD COUNT 13.4 10^3/uL (4.0-10.5)
[2017-04-09] MEDS: INSULIN REG, HUMAN 100 UNIT/ML 3 ML VIAL (PYX) SUBCUT PRN (21:30)
[2017-04-09] MEDS: EZETIMIBE 10 MG TABLET PO SCH (21:30)
[2017-04-10 05:04] LABS: HEMATOCRIT 34.4 % (37.9-51.0); HGB HCT DIFFERENCE 1.6; MEAN CORPUSCULAR HEMOGLOBIN 35.5 pg (27.0-33.4); MEAN CORPUSCULAR HGB CONC 34.9 g/dL (32.0-36.0); MEAN CORPUSCULAR VOLUME 102 fl (80-97); RED BLOOD COUNT 3.38 10^6/uL (4.35-5.55); RED CELL DISTRIBUTION WIDTH 15.5 % (11.5-14.0); WHITE BLOOD COUNT 12.4 10^3/uL (4.0-10.5)
[2017-04-10] MEDS: FERROUS SULFATE 325 MG TABLET PO SCH (05:33)
[2017-04-10] MEDS: CYCLOBENZAPRINE HCL 10 MG TABLET PO SCH (05:33)
[2017-04-10] MEDS: GABAPENTIN 100 MG CAPSULE PO SCH (05:33)
[2017-04-10] MEDS: OXYMETAZOLINE HCL 0.05% NASAL SPRAY 15 ML BOTTLE NASL SCH (08:20)
[2017-04-10] MEDS: MAGNESIUM OXIDE 400 MG TABLET PO SCH (10:04)
[2017-04-10] MEDS: LANSOPRAZOLE 30 MG TAB.RAP.DR PO SCH (10:04)
[2017-04-10] MEDS: INSULIN REG, HUMAN 100 UNIT/ML 3 ML VIAL (PYX) SUBCUT PRN (11:26)
[2017-04-10 13:52] VITALS: BP 105/58
--- NOTE | 2017-04-10 17:02 | PDOC DISCHARGE SUMMARY ---
General - Admit/Disc Date/PCP Admission Date/Primary Care Provider: 04/08/17 16:55 ROSEMARY ROMAN MD Discharge Date: 04/10/17 - Discharge Diagnosis (1) Neck pain on right side Is this a current diagnosis for this admission?: Yes (2) Chronic CHF (congestive heart failure) Is this a current diagnosis for this admission?: Yes (3) Leukocytosis Is this a current diagnosis for this admission?: Yes (4) Diabetes Is this a current diagnosis for this admission?: Yes (5) Dyslipidemia Is this a current diagnosis for this admission?: Yes (6) Hypertension Is this a current diagnosis for this admission?: Yes (7) Obesity Is this a current diagnosis for this admission?: Yes (8) Epistaxis Is this a current diagnosis for this admission?: Yes - Additional Information Resuscitation Status: Do Not Resuscitate Discharge Diet: Cardiac Discharge Activity: Activity As Tolerated Home Medications: Aspirin [Aspirin 81 mg Chewable Tablet] 81 mg PO POSEY@1000 09/24/15 Cyanocobalamin (Vitamin B-12) [Vitamin B-12] 1,000 mcg IM [id number] 09/24/15 Cyclobenzaprine HCl [Flexeril 10 mg Tablet] 10 mg PO QHS 09/24/15 Esomeprazole Mag Trihydrate [Nexium] 40 mg PO DAILY 09/24/15 Ezetimibe [Zetia 10 mg Tablet] 10 mg PO QHS 09/24/15 Ferrous Sulfate [Ferrousul] 325 mg PO Q8 09/24/15 Magnesium Oxide [Mag-Ox 400 mg Tablet] 400 mg PO Q12 09/24/15 Metformin HCl [Glucophage] 1,000 mg PO Q12 09/24/15 Bumetanide [Bumex 2 mg Tablet] 1 tab PO Q12 11/13/15 Metolazone 2.5 mg PO Q2D 11/13/15 Potassium Chloride 20 meq PO DAILY 11/13/15 Albuterol Sulfate [Albuterol Sulfate 2.5mg/3 mL] 1 vial IH RTQ4HP PRN 04/08/17 Fluticasone Propionate [Flovent Hfa 110 Mcg Inhalation Aerosol 12 gm] 2 puff IN Q12 04/08/17 Acetaminophen [Tylenol 325 mg Tablet] 650 mg PO Q8HP PRN tablet 04/10/17 Gabapentin [Neurontin 100 mg Capsule] 100 mg PO Q8 7 Days #21 capsule 04/10/17 History of Present Illness History of Present Illness: KYLAH ORTIZ is a 81 year old white male with a past medical history significant for CHF last known EF of 10-20%, hypertension, pancreatitis secondary to gallstones 2, diabetes and BPH who presents to the service with complaints of back pain. The patient states that yesterday he was out mowing the lawn he developed back pain in the center of his back between his shoulder blades. The patient did not try any home remedies. He states that he has had pancreatitis twice in the past and that this felt exactly the same so he thought he was having another episode of pancreatitis. The pain seemed to constantly be there but got worse and this morning it was still present. Therefore, the patient decided to come into the hospital. Down in the ED he was given a nitroglycerin and his pain completely dissipated EKG showed a right bundle branch block and lipase was normal. The patient does admit to some shortness of breath during this episode. He also states that with movement his pain is much worse. Patient's first set of troponins was indeterminate. He is currently on oxygen at the bedside. Hospital Course Hospital Course: (1) Neck pain on right side Initially thought to be a atypical presentation of acute coronary syndrome this is clearly musculoskeletal. Troponins were negative and he did not have any chest pain. Patient did tenderness on palpation of his neck and with turning of the head to the left causing pain on the right side. X-ray of the cervical spine was ordered which shows spondylosis. Patient improved with low-dose gabapentin, baclofen 5 mg 3 times daily. Patient baclofen changed to 3 times daily. Warm compress was applied to the area patient states that he feels much better. Patient advised to continue using a one per compress to the neck. (2) Chronic CHF (congestive heart failure) Patient has history of chronic congestive heart failure. Patient is euvolemic at this time. Patient may benefit from Coreg however being that his borderline hypotensive. Patient is not on any ACEI or ARB due to his allergy. (3) Leukocytosis There was concern for possible UTI however patient UA is not consistent with UTI. Urine culture was ordered on admission. Because he had already received antibiotic therapy no urine culture was sent. Furthermore patient was asymptomatic. (4) Diabetes Patient was treated with sliding scale insulin however patient can resume his metformin on discharge. (5) Dyslipidemia Continue Ezetimibe. (6) Hypertension Patient is boarderline hypotensive but asymptomatic. Patient was not treated with any blood pressure medications during this hospitalization. (7) Obesity Patient was counseled. (8) Epistaxis Most likely due to irritation of the nasal mucosa with the use of non- humidified oxygen. Lovenox was discontinued and aspirin was discontinued. Patient supplemental oxygen was humidified. Patient was given afrin after which is epistaxis resolved. Patient did not require any nasal packing. Patient hemoglobin remained stable between 12 and 12.5. SCDs were used for DVT prophylaxis thereafter. Physical Exam Vital Signs: Temp Pulse Resp BP Pulse Ox 98.0 F 94 17 105/58 L 97 04/10/17 13:37 04/10/17 13:37 04/10/17 13:37 04/10/17 13:37 04/10/17 13:37 Intake & Output 04/09/17 04/10/17 04/11/17 06:59 06:59 06:59 Intake Total 695 1579 460 Output Total 900 Balance -205 1579 460 Weight 104.7 kg 104.4 kg General appearance: PRESENT: no acute distress, hard of hearing Head exam: PRESENT: normocephalic Eye exam: PRESENT: EOMI. ABSENT: scleral icterus Neck exam: PRESENT: full ROM - mild tenderness on the right side of the neck, other - mild tenderness of the right side Respiratory exam: PRESENT: clear to auscultation olinda. ABSENT: unlabored Cardiovascular exam: PRESENT: RRR, +S1, +S2 GI/Abdominal exam: PRESENT: normal bowel sounds, soft. ABSENT: tenderness Rectal exam: PRESENT: deferred Gentrourinary exam: ABSENT: indwelling catheter Extremities exam: PRESENT: full ROM. ABSENT: pedal edema Musculoskeletal exam: PRESENT: ambulatory Neurological exam: PRESENT: alert, altered, awake, oriented to person, oriented to place, oriented to time, oriented to situation Psychiatric exam: PRESENT: normal mood Results Laboratory Results: 04/10/17 04:17 04/09/17 04:32 04/09/17 04/10/17 20:00 04:17 WBC 13.4 H 12.4 H RBC 3.57 L 3.38 L Hgb 12.5 L 12.0 L Hct 36.2 L 34.4 L MCV 102 H 102 H MCH 35.1 H 35.5 H MCHC 34.5 34.9 RDW 15.5 H 15.5 H Plt Count 128 L 125 L Seg Neutrophils % 81.6 H Lymphocytes % 9.3 L Monocytes % 8.2 Eosinophils % 0.4 Basophils % 0.5 Absolute Neutrophils 10.9 H Absolute Lymphocytes 1.2 Absolute Monocytes 1.1 Absolute Eosinophils 0.1 Absolute Basophils 0.1 04/08/17 04/08/17 17:26 23:24 Troponin I 0.113 0.112 Impressions: Chest X-Ray 04/08/17 13:19 IMPRESSION: Stable appearance. Streaky atelectatic markings again seen lung bases. Cervical Spine X-Ray 04/09/17 00:00 IMPRESSION: SPONDYLOSIS WITHOUT BONE LESION OR FRACTURE. Qualifiers PATEINT BEING DISCHARGED WITH ANY OF THE FOLLOWING DIAGNOSIS?: No HF Pt being discharged on ARBS for LVEF less than 40%?: No Reason(s) for not prescribing ARBS:: Adverse reaction to drug HF Pt discharged on evidence-based Beta Amy:: No Reason(s) for not prescribing evidence-based Beta Amy:: Drug intolerance
[2017-04-14] MEDS ORDERED: ASPIRIN 81 MG TABLET, CHEWABLE PO SCH (10:00)
== END 2017-04-10 14:17 | disposition home or self-care (01) ==
LOC: ER 12:51 → EH 15:39 → UNDOADMOB 15:39 → EH 16:55 → 4N 17:15
DX: M54.2 Cervicalgia (principal); M47.892 Other spondylosis, cervical region; I11.0 Hypertensive heart disease with heart failure; I50.42 Chronic combined systolic (congestive) and diastolic (congestive) heart failure; D72.823 Leukemoid reaction; E11.9 Type 2 diabetes mellitus without complications; E78.5 Hyperlipidemia, unspecified; E66.9 Obesity, unspecified; R04.0 Epistaxis; I45.10 Unspecified right bundle-branch block; R06.02 Shortness of breath; I95.9 Hypotension, unspecified; M25.519 Pain in unspecified shoulder; D64.9 Anemia, unspecified; M13.88 Other specified arthritis, other site; H91.8X1 Other specified hearing loss, right ear; R27.8 Other lack of coordination; R10.10 Upper abdominal pain, unspecified; D69.6 Thrombocytopenia, unspecified; Z66 Do not resuscitate; Z87.891 Personal history of nicotine dependence; Z79.82 Long term (current) use of aspirin; Z79.84 Long term (current) use of oral hypoglycemic drugs; Z87.19 Personal history of other diseases of the digestive system; Z88.8 Allergy status to other drugs, medicaments and biological substances; Z79.899 Other long term (current) drug therapy; Z95.810 Presence of automatic (implantable) cardiac defibrillator; Z90.49 Acquired absence of other specified parts of digestive tract; Z85.038 Personal history of other malignant neoplasm of large intestine; Z68.35 Body mass index [BMI] 35.0-35.9, adult
CPT/HCPCS: 93005; 99285; 96374; 96375; 36415 ×3; 82553; 82962 ×3; 82550; 83690; 83735; 85025 ×2; 85027 ×2; 80048; 80053; 81001; 84484; 83880; 72050; 71010; 93010; G0378 ×4; A9270 ×18; J1940; J1650 ×2; J3490 ×5; J2405; J0696 ×2; J1815

== ENCOUNTER 2018-01-09 22:16 | Inpatient (IN) | payer MEDICARE, OTHER ==
--- NOTE | 2018-01-09 22:40 | ER Document Report ---
ED General - General Stated Complaint: FEVER Time Seen by Provider: 01/09/18 22:19 Notes: Patient is a 82-year-old male who was just discharged from [facility] today. Daughter and son is at bedside. Patient was [place] Said the patient has been going downhill for last several days. Over last 2 days he has not yet drinking anything and has been very poorly responsive. Daughter says that he discussed with the hospitalist at [facility] whether not should do hospice versus rehab. They chose rehab. Shortly after getting rehab patient continued to decline and became short of breath and spiked a fever of over 101 and therefore was brought to our ER. Patient is poorly responsive and will not answer any questions or open his eyes. Patient is in obvious respiratory distress. Patient does have a DNR. Daughter is at bedside and said that the patient does not want any life-sustaining measures including intubation or ventilator. Patient is also hypotensive. At this time the daughter and son do not want him to receive a central line or pressors. TRAVEL OUTSIDE OF THE [place] IN LAST 30 DAYS: No - Related Data Allergies/Adverse Reactions: ADRIAN Inhibitors [Adrian Inhibitors] Allergy (Severe, Verified 04/08/17 12:54) Tongue swelling losartan [Losartan] Allergy (Intermediate, Verified 04/08/17 12:54) rash Past Medical History - Social History Smoking Status: Unknown if Ever Smoked Frequency of alcohol use: None Drug Abuse: None Family History: None - Past Medical History Cardiac Medical History: Reports: Hx Atrial Fibrillation, Hx Congestive Heart Failure, Hx Hypercholesterolemia, Hx Hypertension Denies: Hx Coronary Artery Disease, Hx Heart Attack Pulmonary Medical History: Denies: Hx Asthma, Hx Bronchitis, Hx COPD, Hx Pneumonia, Hx Tuberculosis Neurological Medical History: Denies: Hx Cerebrovascular Accident, Hx Seizures Endocrine Medical History: Reports: Hx Diabetes Mellitus Type 2 Renal/ Medical History: Denies: Hx Peritoneal Dialysis GI Medical History: Reports: Hx Gastroesophageal Reflux Disease. Denies: Hx Hepatitis, Hx Hiatal Hernia, Hx Ulcer Musculoskeltal Medical History: Reports Hx Arthritis Psychiatric Medical History: Denies: Hx Depression Infectious Medical History: Denies: Hx Hepatitis Past Surgical History: Reports: Hx Abdominal Surgery - colon, Hx Bowel Surgery - colon cancer partial colectomy, Hx Cholecystectomy, Hx Orthopedic Surgery - left shoulder, Hx Pacemaker - Patient has a pacemaker defibrillator, Hx Tonsillectomy. Denies: Hx Open Heart Surgery - Immunizations Hx Diphtheria, Pertussis, Tetanus Vaccination: Yes - DECEMBER 2013 Hx Pneumococcal Vaccination: 07/15/09 Review of Systems - Review of Systems -: Yes ROS unobtainable due to patient's medical condition - Patient is unresponsive Physical Exam - Vital signs Vitals: Resp 31 H 01/09/18 22:24 - Notes Notes: General Appearance: Poorly responsive. Patient only responsive to painful stimuli. Patient obvious respiratory distress. Patient is very ill-appearing. Vitals: reviewed, See vital signs table. Head: no swelling or tenderness to the head Eyes: PERRL, EOMI, Conjuctiva clear Mouth: No decreasd moisture Throat: No tonsillar inflammation, No airway obstruction, No lymphadenopathy Neck: Supple, no neck tenderness Lungs: No wheezing, No rales, No rhonci, No accessory muscle use, good air exchange bilaterally. Heart: Normal rate, Regular rythm, No murmur, no rub Abdomen: Normal BS, soft, No rigidity, No abdominal tenderness, No guarding, no rebound, Extremities: good pulses in all extremities, no swelling or tenderness in the extremities, 2+ BILATERAL LOWER EXTREMITY edema. Skin: warm, dry, appropriate color, no rash Neuro: Patient is nonverbal at this time. He is sitting upright in the bed with his eyes closed. He will not follow any commands. He will not open his eyes. He does move his arm some to painful stimuli when they are drawing his blood. Course - Re-evaluation Re-evalutation: 01/09/18 22:40 At this time family appropriately so does not want intubation or pressor therapy. We will continue with other medical management such as IV fluids for blood pressure support as well as antibiotics for what appears to be sepsis. This is what family prefers at this time. Family is aware the patient may continue decompensate and they are understanding of this because we are avoiding anything is outside the patient's wishes. 01/09/18 23:18 Patient does have what appears to be pneumonia on chest x-ray. This would explain why he appear septic and has a fever. He continues to have some hypotension with blood pressure 71/48. I did discuss with the family and they want to avoid any type of pressor therapy being that this is not with the patient would want. Also no ventilators. At this time we will continue with BiPAP and IV fluids for pressure support. Family is understanding that there is a good chance he will pass away from his current illness and it could happen as soon as the next 1-2 days. They are understanding of this and are expecting this. Family is very appropriate and understanding of the patient's chronic illness and how sick he is. 01/10/18 01:15 Patient's blood pressure is actually somewhat normalized and the patient is actually awake but confused but moving his extremities on his own which is a big improvement from where he was when he first arrived. Patient does have elevated lactic acid. I talked to family and form them that he is doing much better than when he first arrived however that he is not out of the sears yet that he still has a high mortality risk at this time and they are very understanding of this. They want to continue with the plan of no severe intervention such as central line, pressors, intubation. They want to continue with the BiPAP as well as his IV fluids as needed and antibiotics. He does have elevated troponin. Is not much different than where it has been in the past. I will talk to our hospitalist about admission. 01/10/18 01:17 01/10/18 02:43 [address] did speak with Dr. Alexandre who agrees to admit the patient. - Vital Signs Vital signs: Temp Pulse Resp BP Pulse Ox 99.2 F 21 H 96/64 L 98 01/10/18 00:26 01/10/18 00:25 01/10/18 00:26 01/10/18 00:25 - Laboratory Result Diagrams: 01/09/18 22:00 01/09/18 22:00 Laboratory results interpreted by me: 01/09/18 01/09/18 01/09/18 22:00 22:00 22:54 WBC 14.1 H RBC 4.23 L MCV 102 H MCH 33.8 H RDW 16.7 H Plt Count 34 L Seg Neuts % (Manual) 81 H Band Neutrophils % 7 H Lymphocytes % (Manual) 6 L Monocytes % (Manual) 1 L Abs Neuts (Manual) 12.4 H VBG pCO2 VBG HCO3 Sodium 135.7 L Chloride 89 L Carbon Dioxide 32 H BUN 135 H Creatinine 2.13 H Est GFR ( Amer) 36 L Est GFR (Non-Af Amer) 30 L Glucose 242 H Lactic Acid 5.1 H Calcium 8.3 L Total Bilirubin 3.4 H Direct Bilirubin 1.8 H AST 621 H ALT 455 H Total Protein 5.1 L Albumin 2.5 L Urine Blood Urine Urobilinogen Ur Leukocyte Esterase 01/09/18 01/09/18 22:54 23:19 WBC RBC MCV MCH RDW Plt Count Seg Neuts % (Manual) Band Neutrophils % Lymphocytes % (Manual) Monocytes % (Manual) Abs Neuts (Manual) VBG pCO2 69.0 H* VBG HCO3 36.6 H Sodium Chloride Carbon Dioxide BUN Creatinine Est GFR ( Amer) Est GFR (Non-Af Amer) Glucose Lactic Acid Calcium Total Bilirubin Direct Bilirubin AST ALT Total Protein Albumin Urine Blood SMALL H Urine Urobilinogen 2.0 H Ur Leukocyte Esterase TRACE H - EKG Interpretation by Me Additional EKG results interpreted by me: 01/09/18 22:42 EKG is reviewed and interpreted by me. EKG shows A. fib with rate of 77 bpm. Patient has some mild ST segment elevation in aVR with some mild ST segment depression in order leads. This is unchanged comparison to his previous EKGs in our system with the most recent one being from April 08, 2017. QRS duration is prolonged. QTc interval is prolonged. Patient does have right bundle branch block. Discharge - Discharge Clinical Impression: Lactic acidosis, DNR (do not resuscitate), Renal insufficiency Pneumonia Qualifiers: Pneumonia type: due to unspecified organism Laterality: bilateral Lung location : unspecified part of lung Qualified Code(s): J18.9 - Pneumonia, unspecified organism Sepsis Qualifiers: Sepsis type: sepsis due to unspecified organism Qualified Code(s): A41.9 - Sepsis, unspecified organism Hypotension Qualifiers: Hypotension type: unspecified hypotension type Qualified Code(s): I95.9 - Hypotension, unspecified Condition: Serious Disposition: ADMITTED INPATIENT Admitting Provider: Hospitalist Unit Admitted: [facility]
[2018-01-09] MEDS ORDERED: VANCOMYCIN HCL INJ 1000 MG VIAL IV ONE (22:41)
[2018-01-09] MEDS ORDERED: RINGERS SOLUTION,LACTATED 1,000 ML IV ONE (22:48)
[2018-01-09 22:54] LABS: HEMATOCRIT 43.2 % (37.9-51.0); HEMOGLOBIN 14.3 g/dL (13.5-17.0); MEAN CORPUSCULAR HEMOGLOBIN 33.8 pg (27.0-33.4); MEAN CORPUSCULAR HGB CONC 33.1 g/dL (32.0-36.0); MEAN CORPUSCULAR VOLUME 102 fl (80-97); RED BLOOD COUNT 4.23 10^6/uL (4.35-5.55); RED CELL DISTRIBUTION WIDTH 16.7 % (11.5-14.0); WHITE BLOOD COUNT 14.1 10^3/uL (4.0-10.5)
[2018-01-09 23:08] LABS: VENOUS BLOOD BASE EXCESS 8.4 mmol/L; VENOUS BLOOD HCO3 36.6 mmol/L (20-32); VENOUS BLOOD PH 7.34 (7.30-7.42)
--- NOTE | 2018-01-09 23:13 | RADIOLOGY REPORT (SQ) ---
EXAM DESCRIPTION: XR CHEST 1 VIEW COMPLETED DATE/TME: 01/09/2018 22:34 EXAM DESCRIPTION: CLINICAL HISTORY: fever, dyspnea COMPARISON: None. FINDINGS: Single view of the chest is submitted. Cardiac silhouette is enlarged. There is consolidation at each lung base with bilateral atelectasis. Electronic cardiac device and leads are present. Detail is limited. IMPRESSION: Bilateral consolidations with cardiomegaly.
[2018-01-09 23:26] LABS: ABSOLUTE LYMPHOCYTES# (MANUAL) 1.6 10^3/uL (0.5-4.7); ABSOLUTE MONOCYTES # (MANUAL) 0.1 10^3/uL (0.1-1.4); ABSOLUTE NEUTROPHILS# (MANUAL) 12.4 10^3/uL (1.7-8.2); BAND NEUTROPHILS % (MANUAL) 7 % (3-5); BASOPHILS % (MANUAL) 0 % (0-2); EOSINOPHILS % (MANUAL) 0 % (0-6); LYMPHOCYTES % (MANUAL) 6 % (13-45); MONOCYTES % (MANUAL) 1 % (3-13); NUCLEATED RED BLOOD CELLS 1 /100 WBC (0); SEGMENTED NEUTROPHILS % (MAN) 81 % (42-78); TOTAL CELLS COUNTED 100
[2018-01-09 23:31] LABS: ANISOCYTOSIS 1+; PLATELET COMMENT DECREASED; POLYCHROMASIA SLIGHT; TOXIC GRANULATION 1+
[2018-01-09 23:32] LABS: PLATELET COUNT 34 10^3/uL (150-450)
[2018-01-09 23:34] LABS: APPEARANCE,URINE SLIGHTLY-CLOUDY; BILIRUBIN,URINE NEGATIVE (NEGATIVE); COLOR,URINE YELLOW; GLUCOSE, URINE NEGATIVE (NEGATIVE); KETONES,URINE NEGATIVE (NEGATIVE); LEUKOCYTE ESTERASE,URINE TRACE (NEGATIVE); NITRITE,URINE NEGATIVE (NEGATIVE); PROTEIN,URINE NEGATIVE (NEGATIVE)
[2018-01-10 00:43] LABS: ALANINE AMINOTRANSFERASE 455 U/L (21-72); ALBUMIN 2.5 g/dL (3.5-5.0); ALKALINE PHOSPHATASE 88 U/L (38-126); ANION GAP 15 (5-19); ASPARTATE AMINO TRANSFERASE 621 U/L (17-59); BILIRUBIN,DIRECT 1.8 mg/dL (0.0-0.4); BILIRUBIN,TOTAL 3.4 mg/dL (0.2-1.3); CALCIUM 8.3 mg/dL (8.4-10.2); CARBON DIOXIDE 32 mmol/L (22-30); CHLORIDE 89 mmol/L (98-107); GLUCOSE 242 mg/dL (75-110); POTASSIUM 4.9 mmol/L (3.6-5.0); SODIUM 135.7 mmol/L (137-145); TOTAL PROTEIN 5.1 g/dL (6.3-8.2)
[2018-01-10 00:52] LABS: BLOOD UREA NITROGEN 135 mg/dL (7-20)
[2018-01-10] MEDS ORDERED: RINGERS SOLUTION,LACTATED 1,000 ML IV ONE (01:57)
[2018-01-10] MEDS ORDERED: ACETAMINOPHEN 325 MG TABLET PO PRN (02:49)
[2018-01-10] MEDS ORDERED: IPRATROPIUM/ALBUTEROL 0.5-2.5 MG/3 ML AMPUL NEB PRN (02:49)
[2018-01-10] MEDS ORDERED: HYDROCORTISONE SOD SUCCINATE INJ/PF 100 MG/2 ML SDV IV ONE (02:54)
[2018-01-10] MEDS ORDERED: NORMAL SALINE 1000 ML 1,000 ML IV SCH (03:00)
[2018-01-10] MEDS ORDERED: VANCOMYCIN HCL 0 MG in DEXTROSE 5%-WATER 250 ML IV NR (03:00)
[2018-01-10] MEDS ORDERED: CEFEPIME 2 GM/D5W RTU 2 GM/50 ML RTUPB IV ONE (03:15)
[2018-01-10] MEDS: IPRATROPIUM/ALBUTEROL 0.5-2.5 MG/3 ML AMPUL NEB SCH ×3 (08:47→20:32)
[2018-01-10] MEDS ORDERED: METOPROLOL SUCCINATE 25 MG TAB.SR.24H PO SCH (10:00)
[2018-01-10] MEDS ORDERED: OXYCODONE HCL IR 5 MG TABLET PO PRN (14:16)
--- NOTE | 2018-01-10 14:27 | PDOC DISCHARGE SUMMARY ---
General - Admit/Disc Date/PCP Admission Date/Primary Care Provider: 01/10/18 02:15 ROSEMARY ROMAN MD Discharge Date: 01/10/18 - Discharge Diagnosis (1) Hypotension Is this a current diagnosis for this admission?: Yes Summary: Due to sepsis. Responded to IV fluids. (2) Lactic acidosis Is this a current diagnosis for this admission?: Yes Summary: Due to sepsis. Came down some after IV fluids. (3) Pneumonia Is this a current diagnosis for this admission?: Yes Summary: Likely hospital-acquired. He was started on broad-spectrum antibiotics. His family decided to take him home this afternoon with hospice. He will not go on any antibiotics at their request. (4) Renal insufficiency Is this a current diagnosis for this admission?: Yes Summary: This is an acute on chronic kidney injury due to sepsis with hypoperfusion. He was getting some IV fluids. His family has decided to take him home on hospice. (5) Sepsis Is this a current diagnosis for this admission?: Yes Summary: Due to healthcare associated pneumonia. He was started on broad-spectrum antibiotics. Cultures were obtained. His family has decided to take him home on hospice today. (6) Acute on chronic systolic (congestive) heart failure Is this a current diagnosis for this admission?: Yes Summary: Apparently he has an EF 10%. He was paradoxically fluid overloaded and dehydrated. His family knows how sick he is and they know that he is not going to get any better and so they decided to take him home today with hospice. (8) Elevated LFTs Is this a current diagnosis for this admission?: Yes Summary: Due to organ hypoperfusion from sepsis. He got some IV fluids and his blood pressure came up. His family decided to take him home with hospice. 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 They talked to him about hospice while he was there but the family decided to take him to rehab. He was in a rehab for more than about half a day before they brought him to the hospital here. He was short of breath and very congested. He had a leukocytosis, evidence of pneumonia on chest x-ray, acute hypoxemic respiratory failure, acute kidney injury, elevated transaminases, and lactic acidosis. He was also hypotensive but this responded to fluids in the ER. Initially the family wanted him admitted. Hospital Course Hospital Course: I came down to see them while he was still in the ER but after he had already been admitted by the overnight provider. When I got down there I spoke with his daughter who had been talking to the ER case reviewer about hospice. While we were down there he was on BiPAP and he was totally BiPAP dependent. When the seal was broken on the face mask to give him a sip of water his oxygen saturations immediately dropped into the mid 80s. His daughter decided she just wanted to focus on keeping him comfortable and so arrangements were made for him to go home on hospice. We will keep her on BiPAP until later on this afternoon until such time as hospice can make the appropriate arrangements for him at home and he can be transported later on this evening. Physical Exam Vital Signs: Temp Pulse Resp BP Pulse Ox 97.7 F 61 28 H 93/64 L 99 01/10/18 12:50 01/10/18 12:50 01/10/18 12:50 01/10/18 12:50 01/10/18 12:50 Intake & Output 01/09/18 01/10/18 01/11/18 06:59 06:59 06:59 Weight 101.4 kg General appearance: PRESENT: disheveled, morbidly obese, severe distress Respiratory exam: PRESENT: accessory muscle use, crackles, rhonchi, tachypnea. ABSENT: unlabored Cardiovascular exam: PRESENT: RRR. ABSENT: diastolic murmur, systolic murmur Pulses: PRESENT: normal carotid pulses, normal radial pulses. ABSENT: normal dorsalis pedis pul - Very difficult to find, but his feet were warm Vascular exam: ABSENT: normal capillary refill GI/Abdominal exam: PRESENT: normal bowel sounds, soft. ABSENT: distended, guarding, mass, organolmegaly, rebound, tenderness Extremities exam: PRESENT: pedal edema, +2 edema, other - He had ecchymoses on all 4 extremities as well as the abdominal wall. ABSENT: clubbing Musculoskeletal exam: ABSENT: deformity Psychiatric exam: PRESENT: anxious Skin exam: PRESENT: cyanosis - He has a darkish bluish discoloration all over his skin as well as ecchymoses on his extremities and his abdomen Results Laboratory Results: 01/10/18 03:10 Lactic Acid 2.6 H Impressions: Chest X-Ray 01/09/18 22:34 and leads are present. Detail is limited. IMPRESSION: Bilateral consolidations with cardiomegaly. Qualifiers - * PATIENT BEING DISCHARGED WITH ANY OF THE FOLLOWING DIAGNOSIS: Heart Failure HF Pt being discharged on ACEI for LVEF less than 40%?: No Reason(s) for not prescribing ACEI:: Hospice Care HF Pt being discharged on ARBS for LVEF less than 40%?: No Reason(s) for not prescribing ARBS:: Hospice Care HF Pt with Afib discharged with Warfarin?: No Reason(s) for not prescribing Warfarin:: Hospice Care HF Pt discharged on evidence-based Beta Amy:: No Reason(s) for not prescribing evidence-based Beta Amy:: Hospice Care
--- NOTE | 2018-01-10 17:58 | PDOC H&P ---
History of Present Illness Admission Date/PCP: 01/10/18 02:15 ROSEMARY ROMAN MD Patient complains of: Hypotension History of Present Illness: KYLAH ORTIZ is a 82 year old male with a complex past medical history of congestive heart failure with an ejection fraction less than 10%, diabetes, recurrent pneumonia. Patient transferred from long-term for shortness of breath found to be in severe respiratory distress with hypotension and shock. Labs reveal severe sepsis, acute on chronic renal failure and DIC. Patient is unable to provide history, he is referred to the hospitalist for admission Past Medical History Cardiac Medical History: Reports: Atrial Fibrillation, Congestive Heart Failure , Hyperlipidema, Hypertension Denies: Coronary Artery Disease, Myocardial Infarction Pulmonary Medical History: Denies: Asthma, Bronchitis, Chronic Obstructive Pulmonary Disease (COPD), Pneumonia, Tuberculosis Neurological Medical History: Denies: Seizures Endocrine Medical History: Reports: Diabetes Mellitus Type 2 GI Medical History: Reports: Gastroesophageal Reflux Disease Denies: Hepatitis, Hiatal Hernia Musculoskeltal Medical History: Reports: Arthritis Psychiatric Medical History: Denies: Depression Hematology: Reports: Anemia - TAKES FEROUS SULFATE Denies: Sickle Cell Disease Past Surgical History Past Surgical History: Reports: Cholecystectomy, Orthopedic Surgery - left shoulder, Pacemaker - Patient has a pacemaker defibrillator, Tonsillectomy Social History Information 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, 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 Smoking Status: Former Smoker Frequency of Alcohol Use: Rare Hx Recreational Drug Use: No Drugs: None Hx Prescription Drug Abuse: No - Advance Directive Resuscitation Status: Do Not Resuscitate Family History Family History: CAD Parental Family History Reviewed: Yes Children Family History Reviewed: Yes Sibling(s) Family History Reviewed.: Yes Medication/Allergy Allergies/Adverse Reactions: ADRIAN Inhibitors [Adrian Inhibitors] Allergy (Severe, Verified 04/08/17 12:54) Tongue swelling losartan [Losartan] Allergy (Intermediate, Verified 04/08/17 12:54) rash Review of Systems ROS unobtainable: Due to mental status Physical Exam Vital Signs: Temp Pulse Resp BP Pulse Ox 97.5 F 86 32 H 116/67 98 01/10/18 15:20 01/10/18 15:20 01/10/18 15:20 01/10/18 15:20 01/10/18 15:20 Intake & Output 01/09/18 01/10/18 01/11/18 11:59 11:59 11:59 Weight 101.4 kg General appearance: PRESENT: hard of hearing, obese, severe distress. ABSENT: cooperative, disheveled Head exam: PRESENT: atraumatic, normocephalic Eye exam: PRESENT: conjunctiva pink, EOMI, PERRLA. ABSENT: scleral icterus Ear exam: PRESENT: normal external ear exam Mouth exam: PRESENT: dry mucosa, neck supple. ABSENT: laceration Neck exam: PRESENT: JVD. ABSENT: carotid bruit, lymphadenopathy, thyromegaly Respiratory exam: PRESENT: accessory muscle use, clear to auscultation olinda, crackles, decreased breath sounds, prolonged expiratory phas, rales, retraction , rhonchi, tachypnea. ABSENT: wheezes Cardiovascular exam: PRESENT: gallop, systolic murmur, tachycardia Pulses: PRESENT: other - Faint pulses Vascular exam: PRESENT: pallor. ABSENT: normal capillary refill GI/Abdominal exam: PRESENT: normal bowel sounds, soft. ABSENT: distended, guarding, mass, organolmegaly, rebound, tenderness Rectal exam: PRESENT: deferred Extremities exam: PRESENT: full ROM. ABSENT: calf tenderness, clubbing, pedal edema Neurological exam: PRESENT: altered, CN II-XII grossly intact. ABSENT: alert, awake, oriented to person, oriented to time Psychiatric exam: PRESENT: appropriate affect, normal mood. ABSENT: homicidal ideation, suicidal ideation Skin exam: PRESENT: dry, erythema, intact, petechiae, warm. ABSENT: cyanosis, rash Results Laboratory Results: 01/10/18 03:10 Lactic Acid 2.6 H Impressions: Chest X-Ray 01/09/18 22:34 and leads are present. Detail is limited. IMPRESSION: Bilateral consolidations with cardiomegaly. Assessment & Plan - Diagnosis (1) Pneumonia Qualifiers: Pneumonia type: due to unspecified organism Laterality: bilateral Lung location: unspecified part of lung Qualified Code(s): J18.9 - Pneumonia, unspecified organism Is this a current diagnosis for this admission?: Yes Plan: Hospital-acquired pneumonia. Empiric cefepime and vancomycin initiated. Patient appears to be in DIC with multiorgan failure. Daughter is power of parcel wrapper and at bedside considering hospice and comfort measures. (2) Sepsis Qualifiers: Sepsis type: sepsis due to unspecified organism Qualified Code(s): A41.9 - Sepsis, unspecified organism Is this a current diagnosis for this admission?: Yes Plan: Hospital-acquired pneumonia. Empiric cefepime and vancomycin initiated. Patient appears to be in DIC with multiorgan failure. Daughter is power of parcel wrapper and at bedside considering hospice and comfort measures. Declining central line and pressors. (3) DIC (disseminated intravascular coagulation) Is this a current diagnosis for this admission?: Yes Plan: Supportive CARE correction of #1 (4) Lactic acidosis Is this a current diagnosis for this admission?: Yes Plan: Secondary to #1 - Time Time Spent: 50 to 70 Minutes - Inpatient Certification Medical Necessity: Need Close Monitoring Due to Risk of Patient Decompensation
[2018-01-10] MEDS ORDERED: CEFEPIME 2 GM/D5W RTU 2 GM/50 ML RTUPB IV SCH (18:00)
[2018-01-10 18:20] VITALS: BP 93/64
[2018-01-10] MEDS ORDERED: VANCOMYCIN HCL 1,250 MG in DEXTROSE 5%-WATER 250 ML IV SCH (22:00)
--- NOTE | 2018-01-11 00:20 | EKG REPORT ---
SEVERITY:- ABNORMAL ECG - UNKNOWN RHYTHM, IRREGULAR RATE 71-97 RBBB AND LPFB : Confirmed by: Dayan Zepeda MD 11-Jan-2018 00:20:01
[2018-01-11] MEDS ORDERED: CEFEPIME 1 GM/D5W RTU 1 GM/50 ML RTUPB IV SCH (06:00)
[2018-01-12] MEDS ORDERED: ASPIRIN 81 MG TABLET, CHEWABLE PO SCH (10:00)
== END 2018-01-10 21:00 | disposition hospice, home (50) | DRG 871 ==
LOC: ER 22:16 → EH 01-10 02:15 → 3W 01-10 11:47
PROVIDERS: ADMIT Internal Medicine; ATTEND Internal Medicine
DX: A41.9 Sepsis, unspecified organism (principal); J18.9 Pneumonia, unspecified organism; I50.23 Acute on chronic systolic (congestive) heart failure; J96.01 Acute respiratory failure with hypoxia; D65 Disseminated intravascular coagulation [defibrination syndrome]; N17.9 Acute kidney failure, unspecified; E86.0 Dehydration; I11.0 Hypertensive heart disease with heart failure; Z66 Do not resuscitate; I48.91 Unspecified atrial fibrillation; E87.5 Hyperkalemia; K21.9 Gastro-esophageal reflux disease without esophagitis; M19.90 Unspecified osteoarthritis, unspecified site; E11.22 Type 2 diabetes mellitus with diabetic chronic kidney disease; I12.9 Hypertensive chronic kidney disease with stage 1 through stage 4 chronic kidney disease, or unspecified chronic kidney disease; N18.9 Chronic kidney disease, unspecified; Z88.8 Allergy status to other drugs, medicaments and biological substances
CPT/HCPCS: 36415; 71045; 80053; 81001; 82533; 82803; 83605; 84484; 85025; 87040; 87077; 87186; 93005; 93010; 94660; 96365; 99285; J0692; J1720; J3370; J7030; J7120; J7620